=== PATIENT | female | born 1985 | race Two or more races ===

== ENCOUNTER 2019-09-27 02:51 | Observation (INO) ==
[2019-09-27 03:50] LABS: Basophils % 0.3 % (0.0-0.8); Eosinophils # 0.1 10*3/uL (0.0-0.87); Eosinophils % 1.2 % (0.00-10.9); Hematocrit 37.5 VOL% (35.7-47.0); Hemoglobin 12.3 GM/DL (12.0-16.0); Immature Granulocytes % 0.3 %; Immature Granulocytes Absolute 0.03 #; Lymphocytes # 3.8 10*3/uL (1.4-4.0); Lymphocytes % 37.7 % (21.3-54.2); Mean Corpuscular HGB Conc 32.8 GM/DL (32-36); Mean Corpuscular Volume 88.7 FL (87-102); Mean Platelet Volume 10.2 FL (9.6-12.0); Neutrophils % 53.5 % (38.7-73.9); Platelet Count 263 T/CUMM (130-400); Red Blood Count 4.23 MC/CUMM (3.8-5.5); Red Cell Distribution Width 14.6 % (9.3-17.3); White Blood Count 10.1 T/CUMM (4-12)
[2019-09-27 04:13] LABS: Alanine Aminotransferase 52 U/L (13-56); Albumin 3.7 G/DL (3.4-5.0); Alkaline Phosphatase 114 U/L (45-117); Aspartate Amino Transferase 68 U/L (0-37); Bilirubin,Total < 0.39 MG/DL (0.2-1.0); Blood Urea Nitrogen 11 MG/DL (7-18); Calcium 8.6 MG/DL (8.5-10.1); Estimated Glom Filtration Rate 107 ML/MIN; Glucose 106 MG/DL (74-106); Osmolality,Calculated 275.5 MOS/KG (273-304); Total Protein 8.3 G/DL (6.4-8.3)
[2019-09-27] MEDS ORDERED: MORPHINE 4 MG/1 ML VIAL IV STA ×2 (04:19→05:22)
[2019-09-27] MEDS ORDERED: ONDANSETRON 4 MG/2 ML VIAL IV ONE (04:19)
[2019-09-27 04:20] LABS: Apearance,Urine Slightly Hazy (Clear); Bacteria,Urine Occasional /HPF (Few); Bilirubin,Urine Negative (Negative); Blood, Urine Negative (Negative); Glucose,Urine (UA) Negative (Negative); Ketones,Urine Negative (Negative); Mucus,Urine Few /LPF (Occasional); Nitrite,Urine Negative (Negative); Protein,Urine Negative; RBC,Urine 1 /HPF (0-4); Squamous Epithelial Cell,Urine Occasional /HPF (0-10); Urine Specific Gravity 1.029 (1.001-1.035); Urine Urobilinogen < 2.0 EU/DL (0.2-1.0); WBC,Urine 1 /HPF (0-6)
[2019-09-27 04:22] LABS: Urine Color Yellow (Yellow)
[2019-09-27] MEDS ORDERED: ONDANSETRON 4 MG/2 ML VIAL IV PRN (05:31)
[2019-09-27] MEDS ORDERED: MORPHINE 4 MG/1 ML VIAL IV PRN (05:31)
[2019-09-27] MEDS ORDERED: SODIUM CHLORIDE 0.9% 1,000 ML IV SCH (06:00)
[2019-09-27] MEDS ORDERED: ENOXAPARIN 40 MG/0.4 ML SYRINGE SUBCUT SCH (07:00)
[2019-09-27] MEDS: SODIUM CHLORIDE 0.9% 1,000 ML IV SCH ×2 (07:36→20:21)
[2019-09-27] MEDS ORDERED: MAGNESIUM CITRATE 300 ML BOTTLE PO ONE (08:28)
[2019-09-27] MEDS: DOCUSATE SODIUM 100 MG CAPSULE PO SCH ×2 (08:54→20:26)
[2019-09-27] MEDS: PANTOPRAZOLE 40 MG VIAL IV SCH (08:54)
[2019-09-27] MEDS ORDERED: POLYETHYLENE GLYCOL POWDER 17 GM PACK PO SCH (17:00)
[2019-09-28 06:27] LABS: Alanine Aminotransferase 64 U/L (13-56); Albumin 2.8 G/DL (3.4-5.0); Alkaline Phosphatase 96 U/L (45-117); Aspartate Amino Transferase 40 U/L (0-37); Bilirubin,Direct < 0.100 MG/DL (0.0-0.20); Bilirubin,Indirect 0.8 MG/DL (0.0-1.0); Total Protein 6.7 G/DL (6.4-8.3)
[2019-09-28 06:29] LABS: Basophils % 0.5 % (0.0-0.8); Eosinophils # 0.1 10*3/uL (0.0-0.87); Hematocrit 34.4 VOL% (35.7-47.0); Immature Granulocytes % 0.2 %; Immature Granulocytes Absolute 0.01 #; Lymphocytes # 2.8 10*3/uL (1.4-4.0); Lymphocytes % 46.4 % (21.3-54.2); Mean Corpuscular Volume 90.5 FL (87-102); Mean Platelet Volume 10.3 FL (9.6-12.0); Monocytes % 6.6 % (1.7-12.7); Neutrophils % 44.3 % (38.7-73.9); Platelet Count 254 T/CUMM (130-400); Red Cell Distribution Width 14.8 % (9.3-17.3); White Blood Count 6.1 T/CUMM (4-12)
[2019-09-28 07:05] LABS: Alanine Aminotransferase 65 U/L (13-56); Albumin 2.9 G/DL (3.4-5.0); Alkaline Phosphatase 88 U/L (45-117); Aspartate Amino Transferase 38 U/L (0-37); Bilirubin,Total < 0.39 MG/DL (0.2-1.0); Blood Urea Nitrogen 5 MG/DL (7-18); Calcium 7.8 MG/DL (8.5-10.1); Estimated Glom Filtration Rate 113 ML/MIN; Glucose 88 MG/DL (74-106); Osmolality,Calculated 272.5 MOS/KG (273-304); Total Protein 6.6 G/DL (6.4-8.3)
[2019-09-28] MEDS ORDERED: POLYETHYLENE GLYCOL POWDER 17 GM PACK PO SCH (07:25)
[2019-09-28 08:31] LABS: Hepatitis B Core IgM Quant < 0.05 Index; Hepatitis B Surface Ag Quant 0.16 Index; Hepatitis B Surface Ag Result Negative (Negative); Hepatitis C Virus Ab Quant < 0.02 Index; Hepatitis C Virus Ab Result Negative (Negative)
[2019-09-28] MEDS: DOCUSATE SODIUM 100 MG CAPSULE PO SCH (09:46)
[2019-09-28] MEDS: PANTOPRAZOLE 40 MG VIAL IV SCH (09:47)
[2019-09-28 12:29] VITALS: BP 96/51
[2019-09-29] MEDS ORDERED: LINACLOTIDE 145 MCG CAPSULE PO SCH (07:30)
== END 2019-09-28 13:10 | disposition home health service (06) ==
LOC: N.ED 02:51 → N.EDINP 02:51 → N.3E 06:07
PROVIDERS: ADMIT Internal Medicine; ATTEND Internal Medicine